=== PATIENT | female | born 1995 | race Two or more races ===

== ENCOUNTER 2018-12-18 19:29 | Emergency (ER) | payer OTHER ==
--- NOTE | 2018-12-18 19:44 | EDM.PDOC ---
ED HPI GENERAL MEDICAL PROBLEM - General Chief Complaint: ENT Problem Stated Complaint: eye irritation Time Seen by Provider: 12/18/18 19:30 Source of Information: Reports: Patient, Old Records ([facility] EMR. No paper hospital chart available.) History Limitations: Reports: No Limitations - History of Present Illness INITIAL COMMENTS - FREE TEXT/NARRATIVE: The patient was brought to the emergency room via private automobile by her mother for evaluation 5/10 left eye pain, which started at about 10 AM this morning after she was rubbing her eye. No history of foreign body, visual changes, previous injury to this eye, use of contact lenses, etc. She does not know when she received her last tetanus booster. No recent history of abdominal pain, heartburn, nausea, diarrhea, melena, gross hematochezia, or any food intolerance, including fatty foods, etc.. The patient also denies any recent fever, cough, wheezing, dyspnea, etc.. The patient did try rinsing out her left eye at least 2 times and also used OTC Visine eyedrops prior to arrival with no improvement in symptoms. Onset: Today, Gradual Onset Date: 12/18/18 Onset Time: 10:00 Duration: Constant, Getting Worse Location: Reports: Other (Left eye). Denies: Head, Face, Chest, Radiates to Quality: Reports: Ache, Sharp Severity: Moderate Improves with: Reports: None Worsens with: Reports: None Context: Reports: Trauma (As above). 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 Denies: Allergic Rhinitis, Hard of Hearing, Impaired Vision Social & Family History - Tobacco Use Smoking Status *Q: Never Smoker Tobacco Use Within Last Twelve Months: No Used Tobacco, but Quit: No Smoking Cessation Information Provided To Patient: No Second Hand Smoke Exposure: No Second Hand Smoke Education Provided: No - Living Situation & Occupation Living situation: Reports: with Family (Mother) Occupation: Employed ([employer]) ED ROS GENERAL - Review of Systems Review Of Systems: ROS reveals no pertinent complaints other than HPI. ED EXAM GENERAL W FULL EYE - Physical Exam Exam: See Below Exam Limited By: No Limitations General Appearance: Alert, WD/WN, No Apparent Distress Eye Exam: Left Eye: Conjunctival Injection (Mild to moderate), Corneal Abrasion (0.5 cm left upper lateral iris border), Bilateral Eye: EOMI, Normal Fundi, PERRL Visual Acuity (R) 20/: 10 Visual Acuity (L) 20/: 10 With Correction: No Eyelids: Left: Lid Everted for Exam (Normal. No foreign body), Bilateral: Normal Appearance Conjunctiva & Sclera: Left: Injected (Mild to moderate) Cornea Exam: Left: Corneal Abrasion (As above), Examined with Flourescein Extraocular Movements: Bilateral: Intact Pupils: Normal Accommodation Pupillary Size: Bilateral: 6 mm Pupillary Reaction: Bilateral: Brisk Anterior Chamber: Bilateral: Normal Appearance Posterior Chamber: Bilateral: Normal Funduscopic Ears: Normal External Exam, Normal Canal, Hearing Grossly Normal, Normal TMs Nose: Normal Inspection, Normal Mucosa, No Blood Throat/Mouth: Normal Inspection, Normal Lips, Normal Teeth, Normal Gums, Normal Oropharynx, Normal Voice, No Airway Compromise. No: Dysphagia, Perioral Cyanosis Head: Atraumatic, Normocephalic. No: Facial Swelling, Facial Tenderness, Sinus Tenderness Neck: Normal Inspection, Supple, Non-Tender, Full Range of Motion. No: Lymphadenopathy (L), Lymphadenopathy (R), Thyromegaly Respiratory/Chest: No Respiratory Distress, Lungs Clear, Normal Breath Sounds, No Accessory Muscle Use, Chest Non-Tender. No: Pleural Rub, Retractions Cardiovascular: Normal Peripheral Pulses, Regular Rate, Rhythm, No Edema, No Gallop, No JVD, No Murmur, No Rub. No: Gallop/S3, Gallop/S4, Friction Rub GI/Abdominal: Normal Bowel Sounds, Soft, Non-Tender, No Organomegaly, No Distention, No Abnormal Bruit, No Mass. No: Guarding (Female) Exam: Deferred Rectal (Males) Exam: Deferred Back Exam: Normal Inspection, Full Range of Motion. No: CVA Tenderness (L), CVA Tenderness (R), Muscle Spasm Neurological: Alert, Oriented, CN II-XII Intact, Normal Cognition, Normal Gait, No Motor/Sensory Deficits Psychiatric: Normal Affect, Normal Mood Skin Exam: Warm, Dry, Intact, Normal Color, No Rash. No: Diaphoretic, Wound/ Incision Lymphatic: No Adenopathy ED EYE w/ Add Procedure - Eye Procedure Alcaine Drops Administered: Yes Eye Irrigated w/ Saline (ccs): 30 Antibiotic Oinment/Drps Admin: Left Eye (Administered by ER nurse) Course - Vital Signs Last Recorded V/S: Last Vital Signs Temp 36.7 C 12/18/18 19:35 Pulse 91 12/18/18 19:35 Resp 16 12/18/18 19:35 BP 130/66 12/18/18 19:35 Pulse Ox 99 12/18/18 19:35 Vital Signs - 24 hr 12/18/18 19:35 Temperature [ 36.7 C Temporal] Pulse, 91 Peripheral [ Left Brachial] Respiratory 16 Rate Blood Pressure 130/66 [Left Upper Arm ] O2 Sat by Pulse 99 Oximetry - Orders/Labs/Meds Orders: Active Orders 24 hr Category Date Time Status Vaccines to be Administered [RC] PER UNIT ROUTINE Care 12/18/18 20:21 Active Obtain Past Medical Record [OM.PC] Routine Oth 12/18/18 19:44 Active Meds: Medications Discontinued Medications Generic Name Dose Route Start Last Admin Trade Name Adan PRN Reason Stop Dose Admin Balanced Salt Solution 30 ml 12/18/18 19:44 12/18/18 20:02 Eye Stream Eye Rinse EYELF 12/18/18 19:45 1 drop ONETIME ONE Administration Diphtheria/Tetanus/Acell Pertussis 0.5 ml 12/18/18 20:21 12/18/18 20:45 Adacel IM 12/18/18 20:22 0.5 ml .ONCE ONE Administration Tetracaine HCl 1 ml 12/18/18 19:44 12/18/18 20:02 Tetracaine 0.5% Steri-Unit Jaqueline EYELF 12/18/18 19:45 1 drop ASDIRECTED ONE Administration - Radiology Interpretation Free Text/Narrative:: None Departure - Departure Time of Disposition: 20:52 Disposition: Home, Self-Care 01 Condition: Good Clinical Impression: Corneal abrasion Qualifiers: Encounter type: initial encounter Laterality: left Qualified Code(s): S05.02XA - Injury of conjunctiva and corneal abrasion without foreign body, left eye, initial encounter - Discharge Information *PRESCRIPTION DRUG MONITORING PROGRAM REVIEWED*: Not Applicable *COPY OF PRESCRIPTION DRUG MONITORING REPORT IN PATIENT VINCE: Not Applicable Prescriptions: Gentamicin [Garamycin 0.3% Ophth Soln] 5 ml EYELF QID #1 bottle Instructions: Corneal Abrasion, [id number] Referrals: David Flowers MD [Primary Care Provider] - Forms: ED Department Discharge, ED Return to Work/School Form Additional Instructions: 1. Follow-up with your regular provider in 2-3 days, if no improvement in symptoms for repeat eye exam and fluoroscein test. 2. Otherwise, Follow up with your regular provider in 10-14 days as needed, if symptoms persist. Bring these discharge instructions with you to that visit.. 3. Tylenol 650 mg by mouth every 4 hours and/or OTC ibuprofen 2-3 tabs by mouth every 6 hours with food as directed./needed. You may stagger these medications for 48-72 hours only, which essentially means that you are receiving a pain medication about every 2 hours. 4. Work excuse- See Form 5. You may use additional OTC artificial tears as needed in addition to your topical antibiotic eye solution 6. Continue your gentamicin eye solution on a 4 times per day basis for at least 5 days and/or for 2 days after complete resolution of symptoms. 7. Immediately after this visit verify that your cellular telephone's voicemail has been activated and is empty. Also verify that your home telephone 's answering machine is operating properly and has space to receive messages. Note that it is sometimes necessary for us to be able to contact you at a later date to discuss your medical care. 8. Please remember that we are ALWAYS here for you and want to answer any questions you may have. Feel free to call the hospital any time and we call you back HIMANSHU. - Problem List & Annotations (1) Corneal abrasion SNOMED Code(s): 10641524 Code(s): S05.00XA - INJ CONJUNCTIVA AND CORNEAL ABRASION W/O FB, UNSP EYE, INIT Status: Acute Priority: High Onset Date: 12/18/18 Annotation/ Comment:: Gentamicin ophthalmic solution initiated in the emergency room. Emergency room prescription provided. DTaP given. Work Excuse provided Qualifiers: Encounter type: initial encounter Laterality: left Qualified Code(s): S05.02XA - Injury of conjunctiva and corneal abrasion without foreign body, left eye, initial encounter - Problem List Review Problem List Initiated/Reviewed/Updated: Yes - My Orders Last 24 Hours: My Active Orders 12/18/18 19:44 Obtain Past Medical Record [OM.PC] Routine 12/18/18 20:21 Vaccines to be Administered [RC] PER UNIT ROUTINE - Assessment/Plan Last 24 Hours: My Active Orders 12/18/18 19:44 Obtain Past Medical Record [OM.PC] Routine 12/18/18 20:21 Vaccines to be Administered [RC] PER UNIT ROUTINE Assessment:: As above Plan: As above. Extensive precautions were given to the patient and her mother, who are in agreement with the treatment plan. See Patient Instructions for further treatment and plan.
[2018-12-18] MEDS: Balanced Salt Solution Ophth Irrig 30 ML Bottle EYELF ONE (20:02)
[2018-12-18] MEDS: Tetracaine HCl/PF 0.5% 4 ML Bottle EYELF ONE (20:02)
[2018-12-18] MEDS: Diphtheria,Pertussis(Acell),Tetanus Vaccine 0.5 ML SDV IM ONE (20:45)
== END 2018-12-18 20:52 | disposition home or self-care (01) ==
LOC: LL.ED 19:29
DX: S05.02XA Injury of conjunctiva and corneal abrasion without foreign body, left eye, initial encounter (principal); Z23 Encounter for immunization; Z88.2 Allergy status to sulfonamides; X58.XXXA Exposure to other specified factors, initial encounter
CPT/HCPCS: 90471; 90715; 99283

== ENCOUNTER 2022-06-26 18:47 | Emergency (ER) | payer OTHER ==
[2022-06-26 18:52] VITALS: BP 129/76; PULSE 78
[2022-06-26] MEDS ORDERED: Sodium Chloride 0.9% 10 ML Syringe FLUSH PRN (19:32)
[2022-06-26] MEDS: Lactated Ringers 1,000 ML IV ONE (19:45)
[2022-06-26] MEDS: Ondansetron 4 MG/2 ML SDV IVPUSH ONE (19:47)
[2022-06-26 20:26] LABS: CHLORIDE,CL 95 mmol/L (98-107); SODIUM,NA 138 mmol/L (136-145)
[2022-06-26 20:29] LABS: ANION GAP 16.7 meq/L (7-15); ESTIMATED GFR 110 mL/min (>=60)
[2022-06-26 20:32] LABS: CORONAVIRUS COVID-19 NAA NEGATIVE (NEGATIVE); RESPIRATORY SYNCYTIAL VIR NAA NEGATIVE (NEGATIVE)
[2022-06-26] MEDS: Piperacillin/Tazobactam 3.375 GM in Sodium Chloride 0.9% 100 ML IV SCH (21:13)
[2022-06-26] MEDS: Potassium Chloride Riders 10 MEQ in Premix Bag 1 BAG IV SCH (21:58)
[2022-06-26] MEDS: Diatrizoate Meglumine/Diatrizoate Sodium 37% 30 ML Bottle PO ONE (22:02)
[2022-06-26] MEDS: Iopamidol 612 MG/ML 100 ML Bottle IVPUSH ONE (22:03)
[2022-06-26] MEDS: Potassium Chloride 20 MEQ Tab.ER PO ONE (23:16)
== END 2022-06-26 23:40 | disposition home or self-care (01) ==
LOC: LL.ED 18:47
DX: R10.13 Epigastric pain (principal); R11.14 Bilious vomiting; Z20.822 Contact with and (suspected) exposure to COVID-19
CPT/HCPCS: 0241U; 36415; 74177; 80053; 81001; 83605; 83690; 83735; 85025; 85652; 96361; 96365; 96367; 96375; 99284-25; A9270-GY; J2405; J2543; J3480; J3490; J7120; Q9963; Q9967